=== PATIENT | female | born 1965 | race Caucasian/White ===

== ENCOUNTER 2024-02-02 20:40 | Emergency (ER) | payer OTHER, SELFPAY ==
--- NOTE | 2024-02-02 20:55 | ED_ITS ---
HPI - General Adult General Chief complaint: Wound/Laceration Stated complaint: R index finger lac Time Seen by Provider: 02/02/24 22:06 Source: patient Limitations: no limitations History of Present Illness ED Provider: Flora Appiah PA-C HPI narrative: 58-year-old female presents with right index finger laceration. Patient was using a mandoline at home, she avulsed the tip of the index finger, it is still bleeding, tetanus not up-to-date Related Data Allergies Allergy/AdvReac Type Severity Reaction Status Date / Time sertraline [From Zoloft] Allergy Anaphylaxis Verified 02/02/24 20:57 Review of Systems Review of Systems: Yes all other systems are reviewed and are negative Constitutional: Constitutional: Denies fatigue and Denies fever(s) Musculoskeletal: Musculoskeletal: Denies tingling Neurologic: Denies tingling Endocrine: Endocrine: Denies fatigue [facility] [place] Past Medical History Attestation statement: The following information was validated with the patient. Social History Social History Alcohol intake: current Alcohol intake frequency: holidays/special occasions only Smoked in Last 30 Days: No Use of substances other than those prescribed or required for medical reasons: No Advance Directives: No Advance Directives Information Provided: Yes Do you have a plan to hurt others: No Plan Patient : No Physical Exam ED Vital Signs: Vital Signs - 24 hr 02/02/24 20:56 02/02/24 22:58 Temperature 97.9 F 97.1 F Pulse Rate 78 56 Respiratory Rate 18 18 Blood Pressure 152/65 H 123/46 L Pulse Oximetry 97 97 Oxygen Delivery Method Room Air Room Air BMI result Body Mass Index 32.3 Const Other: Alert Orientation/consciousness: patient oriented x3 Cardio Other: Normal peripheral perfusion Skin Other: Warm dry no rash Neuro General: patient oriented x3, no focal motor deficits and CN's II-XI intact bilaterally Extrem Other: Avulsion of tip of right index finger bleeding, no nail bed involved, is superficial Psych Other: Calm cooperative Course Course Course Narrative: This is a rapid medical exam performed by Kannan Lux NP: Additional HPI, ROS, PE not included below will be deferred to primary provider. Patient is a 58-year-old right hand dominant female presenting with avulsion to tip of right 2nd finger. Cut accidentally on a slicer. Tetanus not UTD. Full ROM to finger. Avulsion actively bleeding. Plan: Tdap Medications Administered Discontinued Medications Generic Name Dose Route Start Last Admin Trade Name Elliot PRN Reason Stop Dose Admin Diphtheria/Tetanus/Acell Pertussis 0.5 ml 02/02/24 20:57 02/02/24 21:37 Diphth,Pertus(Acell),Tet Adult 0.5 Ml Syringe IM 02/02/24 20:58 0.5 ml .ONCE ONE Administration Lidocaine/Epinephrine 10 ml 02/02/24 22:56 02/02/24 23:04 Lidocaine Hcl 1%/Epi 1:100,000 10 Ml Vial INFILTRATI 02/02/24 22:57 10 ml ONCE ONE Administration Medical Decision Making Medical Decision Making MDM Narrative: 58-year-old female presents with right index finger laceration. Patient was using a mandoline at home, she avulsed the tip of the index finger, it is still bleeding, tetanus not up-to-date No chronic issues History: Per patient I have considered the following differential diagnoses: Fracture, dislocation, open fracture, avulsion, laceration Plan: The patient has a avulsion, there was nothing to approximate, we will clean it, use Surgicel, send with the wound care instructions. Her tetanus was updated, no indication for labs or imaging. Discharge Plan Discharge Clinical Impression: Avulsion of finger tip Patient Disposition: Home, Self-Care Instructions: Skin Avulsion (ED) Additional Instructions: If the bandage clean and dry and in place for at least 2 days. The wound will take time to heal, I have given you additional Surgicel to reapply if needed. Watch for signs of infection which would include redness, swelling or pus draining from the site or fever. Follow up with your primary care provider for a recheck. Print Language: Italian
[2024-02-02 20:56] VITALS: BP 152/65; PULSE 78; RESP 18; TEMP 36.6; O2SAT 97; BMI 32.3
[2024-02-02] MEDS: Diphth,Pertus(ACell),Tet Adult 0.5 ML SYRINGE IM (21:37)
--- NOTE | 2024-02-02 21:37 | PC.NURSE ---
a&ox4. vss and up to date. pt presents to the ED s/p cutting right index finger while slicing food at home. not on blood thinners. states tetanus is not up to date at this time. bleeding uncontrolled - gauze/towel applied to finger. pt instructed to hold pressure on affected area. pt denies any sx in regards to feeling dizzy/lightheaded. tetanus shot administered per provider order. no sob/wob noted. respirations even/unlabored. plan of care ongoing. call fraser placed within reach.
[2024-02-02 22:58] VITALS: BP 123/46; PULSE 56; RESP 18; TEMP 36.2; O2SAT 97
[2024-02-02] MEDS: Lidocaine HCl 1%/Epi 1:100,000 10 ML VIAL INFILTRATI (23:04)
[2024-02-02 23:54] VITALS: BP 123/46; PULSE 56; RESP 18; TEMP 36.2; O2SAT 97
== END 2024-02-02 23:56 | disposition home or self-care (01) ==
PROVIDERS: Emergency Provider Emergency Medicine; PCP Internal Medicine
DX: S61.210A Laceration without foreign body of right index finger without damage to nail, initial encounter (principal); W26.0XXA Contact with knife, initial encounter; Y93.G9 Activity, other involving cooking and grilling; Y92.010 Kitchen of single-family (private) house as the place of occurrence of the external cause; Y99.9 Unspecified external cause status; Z23 Encounter for immunization
CPT/HCPCS: 12001; 90471; 90715; 99284; J2004